=== PATIENT | male | born 1985 | race Caucasian/White ===

== ENCOUNTER 2020-02-13 10:49 | Day surgery (SDC) | payer OTHER, SELFPAY ==
[2020-02-13] VITALS (8 sets, daily range): BP systolic 119–145; BP diastolic 61–76; PULSE 50–91; RESP 14–18; TEMP 36.6–37.2; O2SAT 95–100
--- NOTE | ~2020-02-13 | CT_ITS ---
EXAMINATION: CT abdomen pelvis w con DATE: 02/13/2020 11:49 INDICATION: Right lower quadrant abdominal pain TECHNIQUE: Computed tomography (CT) of the abdomen and pelvis was performed with 100 cc Omnipaque 350 intravenous contrast. Automated exposure control and iterative reconstruction technique were employe d. Exam dose: 617.82 mGy-cm total exam DLP. COMPARISON: None. FINDINGS: The lung bases are clear. Normal heart size. No pericardial or pleural effusion. The liver, spleen, pancreas, adrenal glands and kidneys are normal. No bile or pancreatic duct dilat ation. No urinary tract calculus or hydroureteronephrosis. Normal caliber of the abdominal aorta. No intraperitoneal or retroperitoneal or pelvic mass lesion or lymphadenopathy or ascites. There is appendiceal dilatation up to 11 mm and wall thickening and nati-appendiceal fat stranding, c onsistent with appendicitis; no abscess or free air is detected. No bowel obstruction. Included skeletal structures are unremarkable. IMPRESSION: Acute appendicitis. Reviewed, dictated and finalized at [facility] Reviewed, dictated and finalized at [facility]. IMPRESSION: Acute appendicitis.
--- NOTE | 2020-02-13 11:00 | ED.ABDPAIN ---
HPI - Abdominal Pain General Chief Complaint: Abdominal Pain Stated Complaint: Vomiting, ABD Pain Time Seen by Provider: 02/13/20 10:54 Source: RN notes reviewed History of Present Illness HPI narrative: Patient presents emergency department from home for abdominal pain. Patient states that yesterday he had nausea vomiting and that this morning woke with right lower quadrant scarlet pain. Pain described sharp and stabbing does not radiate he denies any current nausea vomiting denies any diarrhea. No subjective fever last night but denies any fever today. Patient states he is taking no previous pain medication for the symptoms went to urgent care and was referred to the ED for further evaluation Related Data Allergies Allergy/AdvReac Type Severity Reaction Status Date / Time No Known Allergies Allergy Unverified 11/23/11 12:45 Review of Systems Review of Systems: Narrative: Gen.: Subjective fever ENT: Denies congestion Respiratory: Denies shortness of breath or cough CV: Denies chest pain or palpitations GI: See HPI denies burning, urgency, frequency or hematuria Musculoskeletal: Denies back pain or muscle pain Neuro: Denies numbness, tingling, weakness or focal weakness Skin: Denies rash Except as documented, all other systems reviewed and negative PMFSH Past Medical History Medical History (Updated 02/13/20 @ 12:21 by Cody Erickson DO) Patient denies significant medical history Social History Social History (Updated 02/13/20 @ 11:01 by Cody Erickson DO) Smoking status: Never smoker Gender identity (if verbalized by the patient): Male Exam Narrative: Exam Narrative: APPEARANCE: No acute distress, nontoxic, resting in bed HEENT: Normocephalic, atraumatic, OMM RESPIRATORY: No respiratory distress, clear to auscultation bilaterally with no rhonchi wheezing or rales CARDIOVASCULAR: RRR s murmur ABDOMINAL: Soft, nondistended, tender palpation right lower quadrant, no tenderness in right upper quadrant, left quadrant left lower quadrant no reboundpositive percussion tenderness MUSCULOSKELETAl: Moves all extremities. No clubbing, cyanosis or edema. NEURO: Awake and alert. Following commands, speech normal, no focal deficits SKIN:: Warm, dry. Normal Color PSYCHIATRIC: Normal affect/mood Course Course Emergency Course: Discussed with Dr. Coronel presentation work-up. Plans to take patient to the OR at this time Patient plan for OR for appendicitis in agreement Vital Signs Vital signs: Vital Signs Temperature 98.9 F 02/13/20 10:56 Pulse Rate 84 02/13/20 10:56 Respiratory Rate 18 02/13/20 10:56 Blood Pressure 128/76 02/13/20 10:56 Pulse Oximetry 95 02/13/20 10:56 Temperature 98.9 F 02/13/20 10:56 Pulse Rate 84 02/13/20 10:56 Respiratory Rate 18 02/13/20 10:56 Blood Pressure 128/76 02/13/20 10:56 Pulse Oximetry 95 02/13/20 10:56 MDM - Abdominal Pain Lab Data Result diagrams: 02/13/20 11:13 02/13/20 11:13 Labs: Lab Results 02/13/20 02/13/20 Range/Units 11:13 11:13 WBC 25.3 H (4.5-10.0) K/mm3 RBC 5.00 (4.6-6.20) M/mm3 Hgb 15.2 (14.0-18.0) g/dL Hct 44.1 (42.0-52.0) % MCV 88.2 (80-100) fl MCH 30.4 (26-34) pg MCHC 34.5 (32-36) g/dl RDW 12.5 (11.5-14.5) % Plt Count 252 (150-375) k/mm3 MPV 10.2 (7.4-10.4) fl Immature Gran % (Auto) 0.6 H (0-0.5) % Neut % (Auto) 87.1 H (45.5-73.1) % Lymph % (Auto) 4.7 L (18.3-44.2) % [place] % (Auto) 7.4 (2.6-8.5) % Eos % (Auto) 0.0 (0-4.4) % Baso % (Auto) 0.2 (0.2-1.2) % Lymph # (Auto) 1.20 (0.9-3.2) K/mm3 [place] # (Auto) 1.9 H (0.1-0.6) K/mm3 Eos # (Auto) 0.0 (0-0.3) K/mm3 Baso # (Auto) 0.1 (0.0-0.1) K/mm3 Abs Immat Gran (auto) 0.15 H (0.00-0.031) K/mm3 Absolute Neuts (auto) 22.0 H (1.3-6.7) K/mm3 Absolute Nucleated RBC 0.0 (0.0-0.012) K/mm3 Nucleated RBC % 0.0 (0.0-0.2) % Sodium 136 L (137-14
[2020-02-13 11:18] LABS: Basophils Absolute Auto 0.1 K/mm3 (0.0-0.1); Basophils Percent Auto 0.2 % (0.2-1.2); Hematocrit 44.1 % (42.0-52.0); Hemoglobin 15.2 g/dL (14.0-18.0); Immature Granulocyte Absolute 0.15 K/mm3 (0.00-0.031); Immature Granulocyte Percent A 0.6 % (0-0.5); Lymphocytes Percent Auto 4.7 % (18.3-44.2); Mean Corpuscular HGB Conc 34.5 g/dl (32-36); Mean Corpuscular Hemoglobin 30.4 pg (26-34); Mean Corpuscular Volume 88.2 fl (80-100); Mean Platelet Volume 10.2 fl (7.4-10.4); Monocytes Absolute Auto 1.9 K/mm3 (0.1-0.6); Monocytes Percent Auto 7.4 % (2.6-8.5); Neutrophils Percent Auto 87.1 % (45.5-73.1); Platelet Count Result 252 k/mm3 (150-375); Red Cell Distribution Width 12.5 % (11.5-14.5); White Blood Count 25.3 K/mm3 (4.5-10.0)
[2020-02-13 11:31] LABS: Alanine Aminotransferase 26 U/L (4-50); Albumin Level 5.1 g/dL (3.5-5.1); Alkaline Phosphatase 53 U/L (38-126); Aspartate Amino Transferase 28 U/L (17-59); Bilirubin,Total 2.1 mg/dL (0.2-1.3); Blood Urea Nitrogen 10 mg/dL (9-20); Calcium 9.9 mg/dL (8.4-10.2); Carbon Dioxide 27 mmol/L (22-30); Chloride 99 mmol/L (98-107); Estimated Glomerular Filt Rate > 60; Glucose 131 mg/dL (75-110); Lipase 56 U/L (23-300); Sodium 136 mmol/L (137-145)
[2020-02-13] MEDS: KETOROLAC 30 MG/ML VIAL (*BKC) IV PUSH (11:32)
[2020-02-13] MEDS: SODIUM CHLORIDE 0.9% IV 1,000 ML 999 ML IV CONT (11:32)
--- NOTE | 2020-02-13 12:38 | WPDANESEPPF ---
Anes - Initial Pre Proc Eval Procedure: Operation Date: 02/13/20 13:00 Proposed Procedures p Laparoscopic Appendectomy - Santino Coronel DO Date/Time: 02/13/20 12:38 Surgeon: Santino Coronel DO Pre Op Diagnosis: Vomiting, ABD Pain Patient Data Age: 34 Gender: M Height: Weight: Last Vital Signs Temp 37.2 C 02/13/20 10:56 Pulse 84 02/13/20 10:56 Resp 18 02/13/20 10:56 BP 128/76 02/13/20 10:56 Pulse Ox 95 02/13/20 10:56 Allergies Allergy/AdvReac Type Severity Reaction Status Date / Time No Known Allergies Allergy Unverified 11/23/11 12:45 Laboratory Tests 02/13/20 02/13/20 11:13 11:13 WBC 25.3 K/mm3 H K/mm3 (4.5-10.0) RBC 5.00 M/mm3 M/mm3 (4.6-6.20) Hgb 15.2 g/dL g/dL (14.0-18.0) Hct 44.1 % % (42.0-52.0) MCV 88.2 fl fl (80-100) MCH 30.4 pg pg (26-34) MCHC 34.5 g/dl g/dl (32-36) RDW 12.5 % % (11.5-14.5) Plt Count 252 k/mm3 k/mm3 (150-375) MPV 10.2 fl fl (7.4-10.4) Immature Gran % (Auto) 0.6 % H % (0-0.5) Neut % (Auto) 87.1 % H % (45.5-73.1) Lymph % (Auto) 4.7 % L % (18.3-44.2) [place] % (Auto) 7.4 % % (2.6-8.5) Eos % (Auto) 0.0 % % (0-4.4) Baso % (Auto) 0.2 % % (0.2-1.2) Lymph # (Auto) 1.20 K/mm3 K/mm3 (0.9-3.2) [place] # (Auto) 1.9 K/mm3 H K/mm3 (0.1-0.6) Eos # (Auto) 0.0 K/mm3 K/mm3 (0-0.3) Baso # (Auto) 0.1 K/mm3 K/mm3 (0.0-0.1) Abs Immat Gran (auto) 0.15 K/mm3 H K/mm3 (0.00-0.031) Absolute Neuts (auto) 22.0 K/mm3 H K/mm3 (1.3-6.7) Absolute Nucleated RBC 0.0 K/mm3 K/mm3 (0.0-0.012) Nucleated RBC % 0.0 % % (0.0-0.2) Sodium 136 mmol/L L mmol/L (137-145) Potassium 4.0 mmol/L mmol/L (3.4-5.0) Chloride 99 mmol/L mmol/L (98-107) Carbon Dioxide 27 mmol/L mmol/L (22-30) BUN 10 mg/dL mg/dL (9-20) Creatinine 1.00 mg/dL mg/dL (0.7-1.3) Estim Creat Clear Calc Not Reportable Estimated GFR > 60 (59 - ) Glucose 131 mg/dL H mg/dL (75-110) Calcium 9.9 mg/dL mg/dL (8.4-10.2) Total Bilirubin 2.1 mg/dL H mg/dL (0.2-1.3) AST 28 U/L U/L (17-59) ALT 26 U/L U/L (4-50) Alkaline Phosphatase 53 U/L U/L (38-126) Total Protein 9.0 g/dL H g/dL (6.3-8.2) Albumin 5.1 g/dL g/dL (3.5-5.1) Lipase 56 U/L U/L (23-300) Patient hx anesthesia problems: none Family hx anesthesia problems: none [facility] Past Medical History Medical History (Updated 02/13/20 @ 12:38 by David Slagado MD) Appendicitis Patient denies significant medical history Social History Social History Smoking status: Never smoker Gender identity (if verbalized by the patient): Male Anes - Eval Final PreProcedure Day of Procedure 02/13/20 12:38 Patient weight: overweight Heart: regular rate and rhythm Lungs: clear to auscultation Airway: Mallampati scale class 1 Neurological: alert and oriented Last oral intake: >/= 8 hours ASA classification: II Emergent: yes Anesthetic plan: proceed Anesthesia type and monitoring: general ETT and standard monitoring Informed Consent: The patient's anesthetic plan and its attendant risks and benefits were discussed with the patient/family/POA. Questions were solicited and answers provided to the satisfaction of the patient/family/POA.
--- NOTE | 2020-02-13 12:43 | PM.IMHP ---
H&P: HPI History of Present Illness Chief complaint: Vomiting, ABD Pain Narrative: Uziel Naik is a 34 year old male who presented to the emergency department this morning with right lower quadrant abdominal pain. Yesterday he began experiencing some vague mid abdominal pains and nausea and vomiting. He denied any change in bowel habits. He felt somewhat feverish last night, but did not take his temperature. This morning he did not have any evidence of fever. He has never experienced any problems like this in the past. He denies any food that he may have eaten that could have caused an infection. He denies any recent COVID contacts or any other symptoms suspicious of bain virus. Review of Systems Review of Systems: All systems reviewed & are unremarkable except as noted in HPI and below Eyes: Eyes: Denies change in vision ENT: Denies hearing loss, Denies neck pain and Denies sore throat Cardiovascular: Cardiovascular: Denies chest pain and Denies dyspnea Respiratory: Respiratory: Denies cough, Denies dyspnea and Denies wheezing Gastrointestinal: Gastrointestinal: Reports as per HPI Genitourinary: Genitourinary: Denies hematuria and Denies dysuria Musculoskeletal: Musculoskeletal: Denies arthralgias, Denies joint swelling and Denies neck pain Allergic/Immunologic: Allergic/Immunologic: Denies wheezing PMFSH Past Medical History Medical History Appendicitis Patient denies significant medical history Surgical History Surgical History Hx of anterior cruciate ligament surgery Family History Family History Father Diabetes mellitus Grandparent Carcinoma of colon Social History Social History Smoking status: Never smoker Gender identity (if verbalized by the patient): Male Meds Home Medications and Allergies Allergies Allergy/AdvReac Type Severity Reaction Status Date / Time No Known Allergies Allergy Unverified 11/23/11 12:45 Vital Signs Vital Signs - 24 hr 02/13/20 10:56 Temperature 37.2 C Pulse Rate 84 Respiratory Rate 18 Blood Pressure 128/76 Pulse Oximetry 95 Exam Const: General: alert; No acute distress Orientation/consciousness: patient oriented x3 Limitations: no limitations HENMT: Head: normocephalic and atraumatic Ears: hearing grossly normal bilaterally General nose exam: Normal external nose present and Normal nares present Mouth: Yes Normal oral and palatal mucosa present and Yes moist mucous membranes Eyes: General: appearance normal, both eyes and all related structures Conjunctivae: conjunctivae normal Sclera: sclerae normal Pupils: Equal, round and reactive pupils present EOM: EOMs intact bilaterally Neck: Neck: normal visual inspection, full ROM, no lymphadenopathy, supple and no JVD Lymphatic: no lymphadenopathy noted Chest: Chest palpation & inspection: normal inspection of the chest Resp: Effort & Inspection: normal respiratory effort and able to speak in complete sentences Auscultation: clear to auscultation bilaterally Percussion: percussion normal Cardio: Jugular venous distension: no JVD Rate: regular rate Rhythm: regular rhythm Heart sounds: S1 normal heart sound present and S2 normal heart sound present Peripheral pulses: Peripheral pulses 2+ throughout GI: Inspection: normal to inspection GI Palp: Yes abdominal tenderness, Yes Soft to palpation, Yes Tenderness to palpation present (GI) (Right lower quadrant), Yes Guarding due to palpation present (GI) (Right lower quadrant), No Hernia present and No Rebound tenderness present Percussion: Yes normal to percussion Auscultation: normal bowel sounds : General: Yes no CVA tenderness Back/Spine/Pelvis: Back: no CVA tenderness Skin: General skin exam: normal color and dr
[2020-02-13] MEDS: BUPIVACAINE/EPINEPHRINE 0.5% 30 ML VIAL INFILTRATE (13:39)
--- NOTE | 2020-02-13 14:01 | PM.PROC ---
Procedure Note - Detailed Date of procedure: 02/13/20 Pre-op diagnosis: Acute appendicitis Post-op diagnosis: same Procedure performed: Laparoscopic Appendectomy Description of procedure: Procedure as well as risks, benefits, and alternatives were explained to the patient. The patient agreed to proceed. Written consent was obtained and placed in chart prior to procedure. The patient was brought back to surgical suite. He was placed supine on operating table. Time-out was done to confirm the patient and procedure. The patient was then intubated by the Anesthesia Department. His abdomen was prepped and draped in sterile fashion using chlorhexidine prep. A 12 mm incision was made at the inferior portion of the umbilicus. Blunt dissection was carried out down to the linea alba. The linea alba was then incised using a 15 blade scalpel. Then bluntly entered into the peritoneal cavity. A 12 mm trocar was then inserted, and carbon dioxide insufflation was used to create a pneumoperitoneum. The camera was inserted and the abdomen was inspected. No immediate abnormalities were identified. The patient was then placed in slight Trendelenburg position and rotated to the left. A 5 mm incision was made in the suprapubic region in midline and a 5 mm trocar was inserted under direct visualization. A 5 mm incision was made in the left lower quadrant and a 5 mm trocar was inserted under direct visualization. The right lower quadrant was carefully inspected. The cecum was identified and then this was traced back to the appendix. The appendix was identified and grasped at the mesoappendix and lifted anteriorly. Careful blunt dissection was carried out at the base of the appendix through the mesoappendix using a [place] grasper. An Endo-JOVITA 45 mm blue load stapler was then advanced across the base of the appendix and clamped and fired. A white reload was then clamped across the mesoappendix and fired. This freed up our appendix completely. It was then placed in an EndoCatch bag and removed through the left lower quadrant port. The staple lines were then inspected. Hemostasis appeared adequate and the staple lines appeared secure. The area was then irrigated with sterile saline. The pelvis was then carefully inspected and irrigated with sterile saline as well and the remainder of the abdomen was carefully inspected. The patient was then flattened out in bed. One final inspection was made around the abdominal cavity and no other abnormalities were seen. The ports were then removed under direct visualization. The camera was removed and the pneumoperitoneum was released. The fascia of the umbilical incision was reapproximated using an 0 Vicryl [id number] suture. 0.5% bupivacaine with epinephrine was infiltrated locally around each of the incisions. The skin of the incisions was then approximated using 4-0 Monocryl subcuticular suture and Exofin glue was applied on top. The patient was then awakened from anesthesia, extubated, and transferred to Recovery. Anesthesia: GETA and local (0.5% bupivicaine with epi) Surgeon: Santino Coronel DO Estimated blood loss (mL): 10 Pathology: yes (Appendix) Complications: No immediate complications Condition: stable Disposition: same day Findings: Laparoscopic appendectomy was performed. Patient had evidence of acute appendicitis without any evidence perforation or abscess. The appendix was inflamed and distended. The base of the appendix appeared healthy and viable. Appendix was removed and sent to the lab for pathology. There was some bleeding along the vascular staple line at the mesoappendix, therefore a 5 mm Endoclip car wash attendant automatic was used to place 1 clip across the bleeding location, and then hemostasis was adequate. The abdomen was irrigated with 1 L of sterile saline. No other abnormalities were noted.
[2020-02-13] MEDS: LACTATED RINGERS 1,000 ML 30 ML IV CONT ×2 (14:08→14:45)
== END 2020-02-13 15:38 | disposition home or self-care (01) ==
LOC: ANHED 12:21 → ANHSURGERY 12:24
PROVIDERS: Emergency Provider Emergency Medicine; Visit Provider Surgery
PROC: 0DTJ4ZZ Resection of Appendix, Percutaneous Endoscopic Approach (ICD-10-PCS; CPT 44970; principal; 2020-02-13 13:00)
DX: K35.30 Acute appendicitis with localized peritonitis, without perforation or gangrene (principal)
CPT/HCPCS: 44970; 36415; 74177; 80053; 83690; 85025; 88304; 96361; 96365; 96375; 99285; A9270; J1170; J1885; J2250; J2405; J2543; J2704; J3010; J7030; J7120; Q9967

== ENCOUNTER 2022-11-07 16:26 | Emergency (ER) | payer OTHER, SELFPAY ==
--- NOTE | 2022-11-07 16:29 | ED.URI ---
HPI - URI/Sore Throat General Chief Complaint: Upper Respiratory Infection Stated Complaint: Sore Throat,Rt Ear Irritation Time Seen by Provider: 11/07/22 16:29 Source: patient Mode of arrival: ambulatory Limitations: no limitations History of Present Illness HPI Narrative: Haile is a 37-year-old male patient presenting to the clinic today with complaints of right ear pain and sore throat x1 day. He reports both of his children have been treated for strep. He denies any known fever. Does have a nonproductive cough x1 week. MD elicited complaint: sore throat and nasal congestion Related Data Allergies Allergy/AdvReac Type Severity Reaction Status Date / Time No Known Allergies Allergy Verified 11/07/22 16:33 Review of Systems Review of Systems: Pertinent positives per HPI. Patient denies any fever, chills, rash, headache, visual changes, dizziness, shortness of breath, chest pain, palpitations, nausea, vomiting, diarrhea, constipation, abdominal pain, or any urinary issues. PMFSH Past Medical History Medical History (Updated 11/07/22 @ 16:45 by Alberto Abdi APRN) Appendicitis Patient denies significant medical history Surgical History Surgical History History of laparoscopic appendectomy 02/13/20 Hx of anterior cruciate ligament surgery Family History Family History Father Diabetes mellitus Grandparent Carcinoma of colon Social History Social History Smoking status: Never smoker Gender identity (if verbalized by the patient): Male Comments At the time of my signature, I reviewed and agree with the nursing past medical, surgical, social, and family history. There is no relevant family history pertinent to the patient complaint. Exam Narrative: General: Well-developed, well nourished, in no apparent distress Head: Normocephalic, atraumatic Eyes: Pupils equally round and reactive to light bilaterally, EOM intact, sclera and conjunctive clear, no discharge, lids normal Ears: TMs intact and clear, ear canals clear, no drainage, grossly hearing normal. Nose: Nares patent, clear nasal discharge, no inflammation, no sinus tenderness. Mouth: Oral pharynx without lesions or masses, good dentition, MMM. Oropharynx red with bilateral tonsillar enlargement Neck: Supple, trachea midline, enlargement of anterior cervical nodes, no thyroid masses or goiter palpable. Cardio: Regular rate and rhythm, s1 and s2 normal, no murmur appreciated. Resp: Clear to auscultation bilaterally, no rhonchi, rales, wheezing or rubs Course Course Emergency Course: Portions of this record may have been created with voice recognition software. Level of Care: Express Care Visit Vital Signs Vital signs: Vital Signs Temperature 36.9 C 11/07/22 16:37 Pulse Rate 70 11/07/22 16:37 Respiratory Rate 18 11/07/22 16:37 Blood Pressure 135/67 11/07/22 16:37 Pulse Oximetry 100 11/07/22 16:37 Oxygen Delivery Room Air 11/07/22 16:37 Temperature 36.9 C 11/07/22 16:37 Pulse Rate 70 11/07/22 16:37 Respiratory Rate 18 11/07/22 16:37 Blood Pressure 135/67 11/07/22 16:37 Pulse Oximetry 100 11/07/22 16:37 Oxygen Delivery Room Air 11/07/22 16:37 Vital signs reviewed MDM - URI/Sore Throat MDM Narrative Medical decision making narrative: At the time of visit patient is resting comfortably on the exam table. Strep screen was obtained and was positive in the clinic today. Prescription for amoxicillin was sent to pharmacy and supportive measures were discussed with the patient and he voiced understanding discharge instructions agrees to treatment plan. Differential Diagnosis Differential diagnosis: Likely upper respiratory infection, otitis media, sinusitis, viral infection, bronchitis, influenza, pharyn
[2022-11-07 16:37] VITALS: BP 135/67; PULSE 70; RESP 18; TEMP 36.9; O2SAT 100
== END 2022-11-07 16:50 | disposition home or self-care (01) ==
PROVIDERS: Emergency Provider Nurse Practitioner Family; PCP Student in an Organized Health Care Education/Training Program
DX: J02.0 Streptococcal pharyngitis (principal)
CPT/HCPCS: 87880; 99213; G0463

== ENCOUNTER 2022-12-24 08:24 | Emergency (ER) | payer OTHER, SELFPAY ==
--- NOTE | ~2022-12-24 | XR_ITS ---
EXAMINATION: XR ankle LT min 3V DATE: 12/24/2022 08:54 INDICATION: Left ankle pain post injury TECHNIQUE: Anteroposterior, oblique, mortise, and lateral views of the left ankle were obtained. COMPARISON: None. FINDINGS: Alignment is normal. No fracture. Joint spaces are well maintained. Soft tissue swelling about the m edial malleolus. There is also increased density anterior to the tibiotalar joint line consistent wit h small left ankle joint effusion. IMPRESSION: 1. No osseous abnormality. Reviewed, dictated and finalized at [facility]. IMPRESSION: 1. No osseous abnormality.
[2022-12-24 08:31] VITALS: BP 124/75; PULSE 61; RESP 18; TEMP 36.8; O2SAT 100
--- NOTE | 2022-12-24 08:46 | ED.LOWEXIN ---
HPI - Extremity Injury (Lower) General Chief Complaint: Extremity Injury, Lower Stated Complaint: Lt Ankle Pain Source: patient Mode of arrival: ambulatory Limitations: no limitations History of Present Illness HPI Narrative: 37-year-old male presents to [facility] with complaints of pain and swelling to the medial aspect of his left ankle since last night at 9:00 p.m.. Patient reports that he was playing soccer when the ball hit the lateral aspect of his left ankle. Patient has been elevating, icing and taking [id number] ibuprofen with minimal relief. Patient denies history of ankle injuries. Patient denies open wounds, bruising, numbness or tingling MD complaint: ankle injury Onset (ago): hour(s) (12) Injury: Left: ankle Associated symptoms: swelling Other symptoms: none Treatments prior to arrival: cold therapy, NSAIDS and splint Related Data Home Medications Medication Instructions Recorded Confirmed No Home Medications 12/24/22 12/24/22 Allergies Allergy/AdvReac Type Severity Reaction Status Date / Time No Known Allergies Allergy Verified 12/24/22 08:32 Review of Systems Constitutional: Constitutional: Denies chills, Denies fatigue, Denies fever(s) and Denies weakness ENT: Denies dizziness Cardiovascular: Cardiovascular: Denies chest pain Respiratory: Respiratory: Denies cough, Denies dyspnea and Denies wheezing Gastrointestinal: Gastrointestinal: Denies diarrhea, Denies nausea and Denies vomiting Musculoskeletal: Musculoskeletal: Reports arthralgias and Reports joint swelling Comments: Pain and mild swelling to the medial aspect of left Integumentary/Breasts: Skin/Breast: Denies rash Neurologic: Denies dizziness, Denies syncope and Denies headache(s) [facility] Past Medical History Medical History (Updated 12/24/22 @ 09:19 by Latonia Mckeon APRN) Appendicitis Patient denies significant medical history Surgical History Surgical History History of laparoscopic appendectomy 02/13/20 Hx of anterior cruciate ligament surgery Family History Family History Father Diabetes mellitus Grandparent Carcinoma of colon Social History Social History Smoking status: Never smoker Gender identity (if verbalized by the patient): Male Comments At time of signature, I agree with nursing past medical, surgical, social and family history. There is no relevant family history pertinent to the presenting complaint. Exam Const: General: healthy appearing and no acute distress Nutritional Appearance: well nourished Orientation/consciousness: patient oriented x3 Limitations: no limitations Eyes: Conjunctivae: conjunctivae normal Neck: Neck: normal visual inspection Resp: Effort & Inspection: normal respiratory effort, not labored and no retractions Auscultation: clear to auscultation bilaterally, no crackles, no rales, no rhonchi and no wheezes Cardio: Rate: regular rate Rhythm: regular rhythm Heart sounds: no murmurs Skin: General skin exam: normal color Rashes: no rashes Wounds: no wounds Neuro: General: patient oriented x3 Speech: normal speech Gait exam (Neuro): Normal gait present Extrem: Other: Mild swelling and pain with palpation noted to medial aspect of right ankle. Increased pain noted with range of motion and ambulation to left ankle. Pulses are within normal limits. There is no erythema, bruising or open wounds noted Psych: Mental Status: mental status grossly normal Affect: normal affect Attitude: cooperative Course Course Level of Care: Express Care Visit Vital Signs Vital signs: Vital Signs Temperature 36.8 C 12/24/22 08:31 Pulse Rate 61 12/24/22 08:31 Respiratory Rate 18 12/24/22 08:31 Blood Pressure 124/75 12/24/22 08:31 Pulse Oximetry 100 12/24/22 08:31 Oxygen Delivery
== END 2022-12-24 09:20 | disposition home or self-care (01) ==
PROVIDERS: Emergency Provider Nurse Practitioner Family; PCP Student in an Organized Health Care Education/Training Program
DX: M25.572 Pain in left ankle and joints of left foot (principal)
CPT/HCPCS: 73610; 99213; G0463

== ENCOUNTER 2024-04-20 08:30 | Outpatient (CLI) | payer OTHER, SELFPAY ==
--- NOTE | ~2024-04-20 | MR_ITS ---
MRI of the left shoulder Technique: Axial proton-density fat-sat images, coronal proton density fat-sat and T2 fat-sat images, and sagittal T1-weighted and T2 fat-sat images were acquired. Clinical History: Pain Findings: There is minimal AC joint degenerative change. Coracoclavicular, coracoacromial, and coraco humeral ligaments are intact. Supraspinatus and infraspinatus tendons are intact, without partial or full-thickness tear. Subscapul tika tendon is intact. Tendon of long head of the biceps is intact. No definite labral tear seen. Inferior glenohumeral ligament is intact. There is no effusion or degenerative change of the glenohum eral joint. No significant fluid distention of the subacromial/subdeltoid bursa. No muscle atrophy or edema. Impression: No rotator cuff or labral tear seen. Minimal AC joint degenerative change. Reviewed, dictated and finalized at [facility]. Impression: No rotator cuff or labral tear seen. Minimal AC joint degenerative change.
== END 2024-04-20 08:31 ==
LOC: MICIMG 08:31
PROVIDERS: PCP Student in an Organized Health Care Education/Training Program; Visit Provider Student in an Organized Health Care Education/Training Program
DX: M19.012 Primary osteoarthritis, left shoulder (principal)
CPT/HCPCS: 73221